=== PATIENT | female | born 1950 ===

== ENCOUNTER 2019-02-01 07:19 | Outpatient (CLI) | payer OTHER ==
[~2019-02-01] VITALS: Ht 121.9 cm; Wt 45.4 kg
== END 2019-02-01 07:35 | disposition home or self-care (01) ==
LOC: OFIC 805 07:19
DX: H70.11 Chronic mastoiditis, right ear (principal); H72.01 Central perforation of tympanic membrane, right ear; H92.01 Otalgia, right ear; J31.0 Chronic rhinitis; H69.81 Other specified disorders of Eustachian tube, right ear; H61.321 Acquired stenosis of right external ear canal secondary to inflammation and infection

== ENCOUNTER 2019-05-03 08:28 | Outpatient (CLI) | payer OTHER ==
[~2019-05-03] VITALS: Ht 121.9 cm; Wt 45.4 kg
== END 2019-05-03 15:22 | disposition home or self-care (01) ==
LOC: OFIC 805 08:28
DX: H70.11 Chronic mastoiditis, right ear (principal); J31.0 Chronic rhinitis; H60.8X1 Other otitis externa, right ear; H92.01 Otalgia, right ear